=== PATIENT | female | born 1960 | race Caucasian/White ===

== ENCOUNTER 2016-07-13 14:04 | Emergency (ER) | payer BC ==
[~2016-07-13] VITALS: Ht 154.9 cm; Wt 117.5 kg
[~2016-07-13 14:04] MED LIST: HYDR-971 PO; Spironolactone PO; zoloft PO
[2016-07-13] MEDS ORDERED: IBUP800T PO (14:33)
[2016-07-13 14:45] VITALS: BP 124/61
--- NOTE | 2016-07-13 15:04 | ED.ADGEN ---
Past History Past Medical History: Anxiety, Asthma, Depression, Diabetes, Hypertension Past Surgical History: Cholecystectomy, Hysterectomy, Tonsillectomy, Tubal ligation Smoking: Non-smoker Alcohol Use: None Drug Use: None Adult General Chief Complaint Chief Complaint R wrist pain [facility] HPI Patient is a 56 year old female who presents with R wrist pain. States the pain was present upon waking. She denies any known injuries, no redness or swelling, no fevers. 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 The pain worsened today when she was typing on a [email or web address] applying for jobs. She did not attempt any symptom control and medication. She does take meloxicam as needed for arthritis but did not attempt any of this pain medication either. She also has tramadol as needed. Review of Systems Review of Systems Constitutional: Denies fever or chills [] Eyes: Denies change in visual acuity, redness, or eye pain [] HENT: Denies nasal congestion or sore throat [] Respiratory: Denies cough or shortness of breath [] Cardiovascular: No additional information not addressed in HPI [] GI: Denies abdominal pain, nausea, vomiting, bloody stools or diarrhea [] : Denies dysuria or hematuria [] Musculoskeletal: Denies back pain Integument: Denies rash or skin lesions [] Neurologic: Denies headache, focal weakness or sensory changes [] Endocrine: Denies polyuria or polydipsia [] Allergies Allergies Allergies Coded Allergies Type Severity Reaction Last Updated Verified Erythromycin Base Allergy Unknown 07/30/13 Yes Penicillins Allergy Unknown 07/30/13 Yes Sulfa (Sulfonamide Antibiotics) Allergy Unknown 07/30/13 Yes codeine Allergy Unknown 07/30/13 Yes Physical Exam Physical Exam Constitutional: Well developed, well nourished HENT: Normocephalic, atraumatic Eyes: conjunctiva normal, no discharge. [] Neck: Normal range of motion, no tenderness, supple, no stridor. [] Cardiovascular:Heart rate regular with regular rhythm Lungs & Thorax: no respiratory distress Abdomen: Bowel sounds normal, soft, no tenderness, no masses, no pulsatile masses. [] Skin: Warm, dry, no erythema, no rash. [] Extremities: R wrist no erythema or increased warmth, FROM, no focal ttp, neg tinnels, ++ phalens, cap refill <3 sec Neurologic: Alert and oriented X 3, normal motor function, normal sensory function, no focal deficits noted. [] Psychologic: Affect normal, judgement normal, mood normal. [] EKG EKG [] Radiology/Procedures Radiology/Procedures [] Course & Med Decision Making Course & Med Decision Making Pertinent Labs and Imaging studies reviewed. (See chart for details) pt likely has carpal tunnel syndrome. Given velcro wrist splint, dc'd with ibuprofen rx. Instructed NOT to take meloxicam and ibuprofen on same days. f/ u with pcp, wear splint for 1 week and then when sleeping Final Impression Final Impression acute right wrist carpal tunnel syndrome[] Problems: Dragon Disclaimer Dragon Disclaimer This electronic medical record was generated, in whole or in part, using a voice recognition dictation system. JASEN LANDERS MD Jul 13, 2016 15:04
== END 2016-07-13 14:45 | disposition home or self-care (01) ==
LOC: ER 14:04
DX: G56.01 Carpal tunnel syndrome, right upper limb (principal); J45.909 Unspecified asthma, uncomplicated; E11.9 Type 2 diabetes mellitus without complications; I10 Essential (primary) hypertension; Z88.0 Allergy status to penicillin; Z88.1 Allergy status to other antibiotic agents; Z88.2 Allergy status to sulfonamides; Z88.6 Allergy status to analgesic agent
CPT/HCPCS: 29125; 99283-25